=== PATIENT | male | born 1970 | race Hispanic/Latino ===

== ENCOUNTER 2021-08-24 23:32 | Emergency (ER) | payer SELFPAY ==
[2021-08-25 01:23] VITALS: BP 177/110
[2021-08-25 01:50] LABS: Bilirubin,Urine NEG (Negative); Blood,Urine SM (Negative); Color,Urine Yellow (Yellow); Mucus,Urine FEW /HPF; Protein,Urine <15 mg/dL mg/dL (Negative); Urobilinogen,Urine < 2.0 mg/dL (<2.0)
== END 2021-08-26 01:52 | disposition left against medical advice (07) ==
LOC: ED 23:32
DX: R10.9 Unspecified abdominal pain (principal); Z53.21 Procedure and treatment not carried out due to patient leaving prior to being seen by health care provider
CPT/HCPCS: 81001